=== PATIENT | male | born 1980 | race Two or more races ===

== ENCOUNTER 2024-01-15 01:08 | Emergency (ER) | payer OTHER ==
[~2024-01-15] VITALS: Ht 180.3 cm; Wt 69.9 kg
[2024-01-15] MEDS ORDERED: BACITRACIN ZINC OINT PACKET 1 EA PACKET TP ONE (02:56)
[2024-01-15] MEDS ORDERED: CLINDAMYCIN HCL 150 MG CAPSULE ONE (02:57)
[2024-01-15] MEDS ORDERED: CLIN150C16 PO (02:57)
[2024-01-15 03:03] VITALS: BP 143/70; TEMP 98.6; O2SAT 96
[2024-01-15] MEDS: CLINDAMYCIN HCL 150 MG CAPSULE PO ONE (03:03)
[2024-01-15] MEDS: BACITRACIN ZINC OINT PACKET 1 EA PACKET TP ONE (03:03)
== END 2024-01-15 03:03 | disposition home or self-care (01) ==
LOC: ER 01:23
DX: S60.512A Abrasion of left hand, initial encounter (principal); S60.511A Abrasion of right hand, initial encounter; L03.114 Cellulitis of left upper limb; L03.113 Cellulitis of right upper limb; Z60.2 Problems related to living alone; X58.XXXA Exposure to other specified factors, initial encounter; Y93.89 Activity, other specified; Y92.89 Other specified places as the place of occurrence of the external cause; Y99.8 Other external cause status

== ENCOUNTER 2024-01-19 09:39 | Emergency (ER) | payer OTHER ==
[~2024-01-19] VITALS: Ht 182.9 cm; Wt 77.1 kg
[~2024-01-19 09:39] MED LIST: CLIN150C16 PO
[2024-01-19 10:02] VITALS: BP 116/90; TEMP 98; O2SAT 97
[2024-01-19] MEDS ORDERED: SULF1TAB48 PO (11:44)
[2024-01-19] MEDS ORDERED: MUPI22OI7 TP (11:44)
== END 2024-01-19 11:49 | disposition home or self-care (01) ==
LOC: ER 10:34
DX: S60.512A Abrasion of left hand, initial encounter (principal); S60.511A Abrasion of right hand, initial encounter; L03.114 Cellulitis of left upper limb; L03.113 Cellulitis of right upper limb; I73.00 Raynaud's syndrome without gangrene; F22 Delusional disorders; Z60.2 Problems related to living alone; X58.XXXA Exposure to other specified factors, initial encounter; Y93.89 Activity, other specified; Y92.89 Other specified places as the place of occurrence of the external cause; Y99.8 Other external cause status

== ENCOUNTER 2024-02-04 23:43 | Emergency (ER) | payer OTHER ==
[~2024-02-04] VITALS: Ht 182.9 cm; Wt 79.4 kg
[~2024-02-04 23:43] MED LIST changes: +MUPI22OI7 TP; +SULF1TAB48 PO
[2024-02-05] MEDS ORDERED: PERM60CR4 TP (00:37)
[2024-02-05 01:21] VITALS: BP 129/98; TEMP 97.9; O2SAT 98
== END 2024-02-05 01:24 | disposition home or self-care (01) ==
LOC: ER 23:46
DX: S60.512A Abrasion of left hand, initial encounter (principal); S60.511A Abrasion of right hand, initial encounter; L03.114 Cellulitis of left upper limb; L03.113 Cellulitis of right upper limb; Z76.0 Encounter for issue of repeat prescription; Z60.2 Problems related to living alone; W57.XXXA Bitten or stung by nonvenomous insect and other nonvenomous arthropods, initial encounter; Y93.89 Activity, other specified; Y92.89 Other specified places as the place of occurrence of the external cause; Y99.8 Other external cause status

== ENCOUNTER 2024-03-14 21:00 | Emergency (ER) | payer OTHER ==
[~2024-03-14] VITALS: Ht 172.7 cm; Wt 63.5 kg
[~2024-03-14 21:00] MED LIST changes: +PERM60CR4 TP
[2024-03-14 21:43] VITALS: BP 135/81; TEMP 98.2
[2024-03-14] MEDS ORDERED: SULF1TAB48 PO (21:59)
[2024-03-14] MEDS ORDERED: SILV50CR32 TP (21:59)
[2024-03-14] MEDS ORDERED: SILVER SULFADIAZINE CREAM 25 GM TUBE ONE (22:04)
[2024-03-14] MEDS: SILVER SULFADIAZINE CREAM 25 GM TUBE TP ONE (22:05)
[2024-03-14 22:20] VITALS: O2SAT 98
== END 2024-03-14 23:54 | disposition home or self-care (01) ==
LOC: ER 21:03
DX: S60.812A Abrasion of left wrist, initial encounter (principal); F22 Delusional disorders; Z60.2 Problems related to living alone; X58.XXXA Exposure to other specified factors, initial encounter; Y93.89 Activity, other specified; Y92.89 Other specified places as the place of occurrence of the external cause; Y99.8 Other external cause status

== ENCOUNTER 2024-04-09 09:05 | Emergency (ER) | payer OTHER ==
[~2024-04-09] VITALS: Ht 182.9 cm; Wt 77.1 kg
[~2024-04-09 09:05] MED LIST changes: +SILV50CR32 TP
[2024-04-09 09:11] VITALS: BP 101/61; TEMP 98; O2SAT 0
[2024-04-09] MEDS ORDERED: MUPI22OI7 TP (09:16)
[2024-04-09] MEDS ORDERED: SULF1TAB48 PO (09:16)
== END 2024-04-09 09:23 | disposition home or self-care (01) ==
LOC: ER 09:12
DX: F22 Delusional disorders (principal); Z60.2 Problems related to living alone

== ENCOUNTER 2025-01-04 22:27 | Emergency (ER) | payer OTHER ==
[~2025-01-04] VITALS: Ht 182.9 cm; Wt 83.9 kg
[2025-01-05 00:17] VITALS: BP 124/71; TEMP 98.4; O2SAT 98
[2025-01-05] MEDS ORDERED: MUPI22OI7 TP (00:26)
[2025-01-05] MEDS ORDERED: SULF1TAB48 PO (00:26)
== END 2025-01-05 00:28 | disposition home or self-care (01) ==
LOC: ER 22:37
DX: F22 Delusional disorders (principal); L01.00 Impetigo, unspecified; Z79.899 Other long term (current) drug therapy; Z60.2 Problems related to living alone

== ENCOUNTER → 2025-08-29 | Emergency (ER) | payer OTHER ==
[~2025-08-29] VITALS: Ht 182.9 cm; Wt 81.6 kg
[~2025-08-29] MED LIST changes: +CEPH-570 PO; +SILV20CR13 TP
[2025-08-29 18:58] VITALS: BP 137/87; TEMP 98.2; O2SAT 96
== END | disposition home or self-care (01) ==
LOC: ER 21:20
DX: L03.90 Cellulitis, unspecified (principal)
CPT/HCPCS: 73110